=== PATIENT | female | born 1985 | race African-American/Black ===

== ENCOUNTER 2018-10-31 10:11 | Emergency (ER) | payer OTHER ==
[~2018-10-31] VITALS: Ht 157.5 cm; Wt 83.9 kg
[2018-10-31 11:05] VITALS: BP 147/99
[2018-10-31] MEDS ORDERED: IBUPROFEN 600 MG TABLET. PO ONE (11:15)
--- NOTE | 2018-10-31 11:33 | PHYS DOC ---
Past Medical History Past Medical History: No Pertinent History Past Surgical History: Alcohol Use: Rarely Drug Use: None Adult General Chief Complaint Chief Complaint: TOE PROBLEM HPI HPI 32 y/o female presents to ER for c/o rt great toe pain from injury yest. Pt reports she was at work when she jammed her rt foot under the forklift. She has been ambulatory since injury without assistive device. She denies numbness/ tingling. She denies OTC meds for pain. She reports she soaked her foot in epsom salt soak last night. She denies other injury. Review of Systems Review of Systems Constitutional: Denies fever or chills [] Eyes: Denies change in visual acuity, redness, or eye pain [] HENT: Denies nasal congestion or sore throat [] Respiratory: Denies cough or shortness of breath [] Cardiovascular: No additional information not addressed in HPI [] GI: Denies abdominal pain, nausea, vomiting, bloody stools or diarrhea [] : Denies dysuria or hematuria [] Musculoskeletal: Denies back pain or joint pain [] Integument: Denies rash or skin lesions [] Neurologic: Denies headache, focal weakness or sensory changes [] Endocrine: Denies polyuria or polydipsia [] All other systems were reviewed and found to be within normal limits, except as documented in this note. Current Medications Current Medications Current Medications Medications (Trade) Dose Ordered Sig/Christina Start Time Stop Time Status Last Admin Dose Admin Ibuprofen (Motrin) 600 mg 1X ONCE 10/31/18 11:15 10/31/18 11:16 DC 10/31/18 11:32 600 MG Allergies Allergies Allergies Coded Allergies Type Severity Reaction Last Updated Verified No Known Drug Allergies 05/05/14 No Physical Exam Physical Exam Constitutional: Well developed, well nourished, no acute distress, non-toxic appearance. [] HENT: Normocephalic, atraumatic, bilateral external ears normal, oropharynx moist, no oral exudates, nose normal. [] Eyes: PERRLA, EOMI, conjunctiva normal, no discharge. [] Neck: Normal range of motion, no tenderness, supple, no stridor. [] Cardiovascular:Heart rate regular rhythm, no murmur [] Lungs & Thorax: Bilateral breath sounds clear to auscultation [] Abdomen: Bowel sounds normal, soft, no tenderness, no masses, no pulsatile masses. [] Skin: Warm, dry, no erythema, no rash. [] Back: No tenderness, no CVA tenderness. [] Extremities: No tenderness, no cyanosis, no clubbing, ROM intact, no edema. [] Neurologic: Alert and oriented X 3, normal motor function, normal sensory function, no focal deficits noted. [] Psychologic: Affect normal, judgement normal, mood normal. [] Current Patient Data Vital Signs Vital Signs Date Time Temp Pulse Resp B/P (MAP) Pulse Ox O2 Delivery O2 Flow Rate FiO2 10/31/18 11:05 98.3 95 18 147/99 (115) 99 Room Air 98.3 EKG EKG [] Radiology/Procedures Radiology/Procedures [] Course & Med Decision Making Course & Med Decision Making Pertinent Imaging studies reviewed. (See chart for details) [] Dragon Disclaimer Dragon Disclaimer This electronic medical record was generated, in whole or in part, using a voice recognition dictation system. Departure Departure Impression: Primary Impression: Injury of toe on left foot Disposition: 01 HOME, SELF-CARE Condition: STABLE Referrals: NO PCP (PCP) BABS BUTTS MD Patient Instructions: Toe Injuries and Amputations Additional Instructions: Postop shoe for support of foot. If symptoms persist follow-up with orthopedic doctor for reevaluation and further care. You can take [id number] Tylenol and/or ibuprofen as needed for pain as directed on container. Ice packs every 3- 4 hours for 20-30 minutes at a time and you can also continue absence salt soaks. FESTUS SANTACRUZ APRN Oct 31, 2018 11:33
--- NOTE | 2018-10-31 11:51 | RAD ---
Right great toe, 3 views, 10/31/2018: HISTORY: Toe injury There is mild deformity of the terminal tuft of the distal phalanx of the great toe. A small adjacent soft tissue calcification is present along its plantar aspect. No definite acute fracture line is seen. This may be an old injury. Clinical correlation suggested. No other great toe abnormality is detected. IMPRESSION: Deformity of the terminal tuft of the distal phalanx which may be old. Electronically signed by: Julio Cesar Chaparro MD (10/31/2018 11:46 AM) [facility]
== END 2018-10-31 12:26 | disposition home or self-care (01) ==
LOC: ER 10:11
DX: S99.921A Unspecified injury of right foot, initial encounter (principal); W23.0XXA Caught, crushed, jammed, or pinched between moving objects, initial encounter; Y93.89 Activity, other specified; Y92.69 Other specified industrial and construction area as the place of occurrence of the external cause; Y99.8 Other external cause status
CPT/HCPCS: 73660; 99283

== ENCOUNTER 2022-03-08 12:38 | Emergency (ER) | payer OTHER ==
[~2022-03-08] VITALS: Ht 157.5 cm; Wt 95.0 kg
[2022-03-08 12:58] VITALS: BP 174/75
--- NOTE | 2022-03-08 13:53 | PHYS DOC ---
Past Medical History Past Medical History: No Pertinent History Past Surgical History: Smoking Status: Current Every Day Smoker Alcohol Use: Rarely Drug Use: None General Adult EDM: Chief Complaint: SKIN PROBLEM HPI: HPI: Patient is a 36 year old female who presents to the ED today complaining of an abscess on the left inner buttock that opened up and drained it yesterday. Patient denies any fever. Review of Systems: Review of Systems: Constitutional: Denies fever or chills. [] Musculoskeletal: Denies back pain or joint pain. [] Integument: Reports abscess on the left inner buttock Neurologic: Denies headache, focal weakness or sensory changes. [] Psychiatric: Denies depression or anxiety. [] Heart Score: C/O Chest Pain: N/A Risk Factors: Risk Factors: DM, Current or recent (<one month) smoker, HTN, HLP, family history of CAD, obesity. Risk Scores: Score 0 - 3: 2.5% MACE over next 6 weeks - Discharge Home Score 4 - 6: 20.3% MACE over next 6 weeks - Admit for Clinical Observation Score 7 - 10: 72.7% MACE over next 6 weeks - Early Invasive Strategies Allergies: Allergies: Allergies Coded Allergies Type Severity Reaction Last Updated Verified No Known Drug Allergies 05/05/14 No Physical Exam: PE: Constitutional: Well developed, well nourished, no acute distress, non-toxic appearance. [] Skin: Left inner buttock with an open abscess roughly 2 x 2 cm with surrounding 1 cm cellulitis. There is no fluctuance to the area, nothing to drain the right now Back: No tenderness, no CVA tenderness. [] Extremities: No tenderness, no cyanosis, no clubbing, ROM intact, no edema. [] Neurologic: Alert and oriented X 3, normal motor function, normal sensory function, no focal deficits noted. [] Psychologic: Affect normal, judgement normal, mood normal. [] Current Patient Data: Vital Signs: Vital Signs Date Time Temp Pulse Resp B/P (MAP) Pulse Ox O2 Delivery O2 Flow Rate FiO2 03/08/22 12:58 98.6 102 18 174/75 (108) 97 Room Air 98.6 EKG: EKG: [] Radiology/Procedures: Radiology/Procedures: [] Course & Med Decision Making: Course & Med Decision Making Pertinent Labs and Imaging studies reviewed. (See chart for details) This a 36-year-old female patient presenting to the ED today with left buttock abscess that has opened up and drained. There is nothing to drain today. The area has cellulitis surrounding it. Was discharged on Bactrim. Tetanus is up-to-date. Wound care instructions and return precautions provided Wendi Disclaimer: Wendi Disclaimer: This electronic medical record was generated, in whole or in part, using a voice recognition dictation system. Departure Departure Impression: Primary Impression: Cellulitis and abscess of buttock Disposition: HOME / SELF CARE / HOMELESS Condition: STABLE Referrals: NO PCP (PCP) KAY CODY MD follow up in 1-2 weeks Patient Instructions: Abscess, Care After Additional Instructions: You have an abscess that has opened up and drained. Continue applying warm compresses to the area twice a day until the area clears up. Take the prescribed antibiotics until completed. Follow-up with your doctor or the provided surgeon in 1 to 2 weeks Scripts Ibuprofen (IBUPROFEN) 600 Mg Tablet 600 MG PO PRN Q6HRS PRN for INFLAMMATION, #30 TAB Prov: DEEPIKA BRITTON APRN 03/08/22 Sulfamethoxazole/Trimethoprim (BACTRIM DS TABLET) 1 Each Tablet 1 TAB PO BID for 10 Days, #20 TAB 0 Refills Prov: DEEPIKA BRITTON APRN 03/08/22 DEEPIKA BRITTON APRN March 08, 2022 13:53
[2022-03-08] MEDS ORDERED: SULF1TAB24 PO (13:56)
[2022-03-08] MEDS ORDERED: IBUP-1007 PO (13:56)
== END 2022-03-08 14:05 | disposition home or self-care (01) ==
LOC: ER 12:38
DX: L02.31 Cutaneous abscess of buttock (principal); L03.317 Cellulitis of buttock; F17.200 Nicotine dependence, unspecified, uncomplicated; Z98.890 Other specified postprocedural states
CPT/HCPCS: 99283